=== PATIENT | female | born 1975 | race American Indian/Alaskan Native ===

== ENCOUNTER 2021-11-09 09:50 | Outpatient (CLI) | payer OTHER ==
--- NOTE | 2021-11-09 11:23 | XRay Report ---
LEFT KNEE 4 VIEW(S) INDICATION / CLINICAL INFORMATION: Z02.71 ENCOUNTER FOR DISABILITY DETERMINATION COMPARISON: None available. FINDINGS: BONES / JOINT(S): No acute fracture or subluxation. The joint spaces are maintained. There is mild ma rginal osteophyte along the lateral femoral condyle. SOFT TISSUES: No significant abnormality. ADDITIONAL FINDINGS: None. IMPRESSION: 1. There is mild degenerative change. The joint spaces are maintained. There is mild osteophyte forma tion along the lateral femoral condyle. Signer Name: Pantera Mitchell MD Signed: 11/09/2021 11:19 AM Workstation Name: [id number]
--- NOTE | 2021-11-09 11:43 | XRay Report ---
LEFT HIP 2 VIEWS INDICATION / CLINICAL INFORMATION: Z02.71 ENCOUNTER FOR DISABILITY DETERMINATION. COMPARISON: None available. FINDINGS: BONES / JOINT(S): There is mild degenerative disc disease at L4-5. The hip and SI joint spaces are we ll-maintained. There is no evidence of acute fracture, subluxation or destructive lesion. SOFT TISSUES: There is localized heterotopic ossification lateral to the right iliac bone. ADDITIONAL FINDINGS: None. IMPRESSION: 1. Mild lower lumbar spondylosis. No acute abnormality 2. Heterotopic ossification in the soft tissues lateral to the right iliac bone. Signer Name: Erick De La Vega MD Signed: 11/09/2021 11:39 AM Workstation Name: [id number]
== END 2021-11-09 09:51 | disposition home or self-care (01) ==
LOC: XRAY 09:50
PROVIDERS: ATTEND Internal Medicine
DX: Z02.71 Encounter for disability determination (principal); M17.12 Unilateral primary osteoarthritis, left knee; M25.762 Osteophyte, left knee; M47.816 Spondylosis without myelopathy or radiculopathy, lumbar region